=== PATIENT | female | born 1945 | race Hispanic/Latino ===

== ENCOUNTER → 2024-11-14 | Day surgery (SDC) | payer MEDICARE ==
[2024-11-12 10:51] LABS: BASOPHILS % 0.3 % (0.0-1.0); EOSINOPHILS # (AUTO) 0.1 (0.0-0.4); HEMATOCRIT 34.9 % (34.2-44.1); HEMOGLOBIN 11.3 g/dL (12.0-16.0); LYMPHOCYTES # (AUTO) 1.3 (1.0-3.2); MEAN CORPUSCULAR HEMOGLOBIN 29.4 pg (28-32); MEAN CORPUSCULAR HGB CONC 32.4 g/dL (31-35); MEAN CORPUSCULAR VOLUME 90.9 fL (81-99); MONOCYTES # (AUTO) 0.4 (0.2-0.8); MONOCYTES % 10.9 % (4.4-11.3); NEUTROPHILS # (AUTO) 1.8 (2.1-6.9); NEUTROPHILS % 51.5 % (38.7-80.0); PLATELET COUNT 267 x10e3/uL (140-360); RED BLOOD COUNT 3.84 x10e6/uL (3.6-5.1); RED CELL DISTRIBUTION WIDTH 13.7 % (11.7-14.4); WHITE BLOOD COUNT 3.57 x10e3/uL (4.8-10.8)
[~2024-11-14] MED LIST: ASPIRIN81 MG PO; CIPRO500 MG PO; FIORICET 50-301 EACH PO; LIDOCAINE HCL 2% LOCAL INJ 5 ML SDV VIAL INJ ONE; LISINOPRIL5 MG PO; METFORMIN HCL500 MG PO; METRONIDAZOLE500 MG PO; ONDANSETRON ODT4 MG SL; PROPOFOL IV EMULSION 10 MG/ML 20 ML VIAL ONE; SIMVASTATIN80 MG PO
[2024-11-14] MEDS: LACTATED RINGER'S 1,000 ML ONE (08:35)
[2024-11-14] MEDS: DEXTROSE 5% 250ML 250 ML IV ONE (08:35)
[2024-11-14 10:21] VITALS: TEMP 97.9
[2024-11-14 10:50] VITALS: BP 130/74; PULSE 88; RESP 16; O2SAT 100
== END | disposition home or self-care (01) ==
LOC: OR 07:21
PROVIDERS: ATTEND Internal Medicine Gastroenterology
DX: Z12.11 Encounter for screening for malignant neoplasm of colon (principal); K57.30 Diverticulosis of large intestine without perforation or abscess without bleeding; K64.8 Other hemorrhoids; K76.0 Fatty (change of) liver, not elsewhere classified; R63.4 Abnormal weight loss; E11.9 Type 2 diabetes mellitus without complications; I10 Essential (primary) hypertension; E78.5 Hyperlipidemia, unspecified; M19.90 Unspecified osteoarthritis, unspecified site; Z78.9 Other specified health status; Z01.810 Encounter for preprocedural cardiovascular examination; Z01.812 Encounter for preprocedural laboratory examination; Z79.82 Long term (current) use of aspirin; Z79.84 Long term (current) use of oral hypoglycemic drugs; Z79.899 Other long term (current) drug therapy; Z68.1 Body mass index [BMI] 19.9 or less, adult
CPT/HCPCS: 36415 ×2; 82948; 85025; 93005; G0121; J2003; J2704; J7121; 45378

== ENCOUNTER 2025-01-12 19:22 | Emergency (ER) | payer MEDICARE ==
[~2025-01-12] VITALS: Ht 162.6 cm; Wt 40.8 kg
[~2025-01-12 19:22] MED LIST changes: -CIPRO500 MG PO; -LIDOCAINE HCL 2% LOCAL INJ 5 ML SDV VIAL INJ ONE; -METRONIDAZOLE500 MG PO; -ONDANSETRON ODT4 MG SL; -PROPOFOL IV EMULSION 10 MG/ML 20 ML VIAL ONE
[2025-01-12] MEDS: ACETAMINOPHEN 325 MG TAB PO ONE (19:56)
[2025-01-12] MEDS: ONDANSETRON HCL INJ 2MG/ML 2ML 2 MG/ML VIAL IV STA (19:57)
[2025-01-12] MEDS: Morphine 2mg Syringe 2 MG/ML SYR IV ONE (19:57)
[2025-01-12] MEDS: SODIUM CHLORIDE 0.9% 1000ML 1,000 ML IV ONE (19:58)
[2025-01-12 20:02] LABS: BASOPHILS % 0.2 % (0.0-1.0); EOSINOPHILS % 0.2 % (0.0-6.0); HEMATOCRIT 37.2 % (34.2-44.1); LYMPHOCYTES # (AUTO) 0.3 (1.0-3.2); LYMPHOCYTES % 5.7 % (18.0-39.1); MEAN CORPUSCULAR HEMOGLOBIN 29.4 pg (28-32); MEAN CORPUSCULAR HGB CONC 32.3 g/dL (31-35); MEAN CORPUSCULAR VOLUME 91.2 fL (81-99); MONOCYTES # (AUTO) 0.2 (0.2-0.8); MONOCYTES % 3.4 % (4.4-11.3); NEUTROPHILS # (AUTO) 5.1 (2.1-6.9); NEUTROPHILS % 90.3 % (38.7-80.0); PLATELET COUNT 331 x10e3/uL (140-360); RED BLOOD COUNT 4.08 x10e6/uL (3.6-5.1); RED CELL DISTRIBUTION WIDTH 13.3 % (11.7-14.4); WHITE BLOOD COUNT 5.64 x10e3/uL (4.8-10.8)
[2025-01-12 20:16] LABS: ALBUMIN 4.2 g/dL (3.5-5.0); ALBUMIN/GLOBULIN RATIO 1.4 (0.8-2.0); ANION GAP 16.8 mmol/L (8-16); BILIRUBIN,TOTAL 0.5 mg/dL (0.2-1.2); CALCIUM 9.3 mg/dL (8.4-10.2); CREATININE, SERUM 0.84 mg/dL (0.57-1.11); POTASSIUM 3.8 mmol/L (3.5-5.1); TOTAL PROTEIN 7.1 g/dL (6.5-8.1)
[2025-01-12] MEDS ORDERED: IOPAMIDOL 370 MG/ML 100 ML INFUS..BTL INJ ONE (20:41)
[2025-01-12 20:53] LABS: CORONAVIRUS COVID-19 AG NEGATIVE (NEGATIVE); INFLUENZA A AG NEGATIVE (NEGATIVE); INFLUENZA B AG NEGATIVE (NEGATIVE)
[2025-01-12 21:36] LABS: BILIRUBIN,URINE NEGATIVE (NEGATIVE); CLARITY,URINE CLEAR (CLEAR); COLOR,URINE YELLOW (YELLOW); GLUCOSE, URINE NEGATIVE (NEGATIVE); KETONES,URINE NEGATIVE (NEGATIVE); LEUKOCYTE ESTERASE ,URINE NEGATIVE (NEGATIVE); NITRITE,URINE NEGATIVE (NEGATIVE); PH,URINE 5.5 (5 - 7); PROTEIN,URINE DIPSTICK NEGATIVE (NEGATIVE); URINE UROBILINOGEN 0.2 mg/dL (0.2 - 1)
[2025-01-12 21:47] LABS: BACTERIA,URINE FEW /HPF; EPITHELIAL CELLS,URINE FEW /LPF; MUCUS,URINE FEW; RBC,URINE 0-5 /HPF (0-5); WBC,URINE (MAN) 0-5 /HPF (0-5)
[2025-01-12 23:51] LABS: TROPONIN I 0.026 ng/mL (0-0.300)
[2025-01-13 00:45] VITALS: PULSE 77; RESP 16; TEMP 98.2; O2SAT 97
[2025-01-13] MEDS ORDERED: CIPRO500 MG PO (00:51)
[2025-01-13] MEDS ORDERED: METRONIDAZOLE500 MG PO (00:51)
[2025-01-13] MEDS ORDERED: ONDANSETRON ODT4 MG SL (00:51)
== END 2025-01-13 00:58 | disposition home or self-care (01) ==
LOC: ER 19:34
DX: R10.32 Left lower quadrant pain (principal); K52.9 Noninfective gastroenteritis and colitis, unspecified; I10 Essential (primary) hypertension; E11.9 Type 2 diabetes mellitus without complications; E78.5 Hyperlipidemia, unspecified; M54.9 Dorsalgia, unspecified; G89.29 Other chronic pain; M19.09 Primary osteoarthritis, other specified site; Z11.52 Encounter for screening for COVID-19; R94.31 Abnormal electrocardiogram [ECG] [EKG]
CPT/HCPCS: 36415; 74177; 80053; 81001; 83690; 84484; 85025; 87428; 93005; 99284; J2405; J2470; J7030; Q9967; J2270